=== PATIENT | male | born 1985 | race Caucasian/White ===

== ENCOUNTER 2017-01-03 21:18 | Emergency (ER) | payer OTHER | END 2017-01-03 23:26 | disposition home or self-care (01) | LOC: ER 21:18 | DX: T20.10XA Burn of first degree of head, face, and neck, unspecified site, initial encounter (principal); W40.1XXA Explosion of explosive gases, initial encounter; Z79.899 Other long term (current) drug therapy | CPT/HCPCS: 90471; 90715; 96372; 99070; 99282-25 ==